=== PATIENT | female | born 1955 | race Caucasian/White ===

== ENCOUNTER → 2024-02-04 13:09 | Outpatient (REF) | payer BC, SELFPAY | LOC: WDC 13:09 | PROVIDERS: ATTENDING PHYSICIAN Obstetrics & Gynecology Gynecology; FAMILY PHYSICIAN Internal Medicine | DX: Z78.0 Asymptomatic menopausal state (principal); Z12.31 Encounter for screening mammogram for malignant neoplasm of breast | CPT/HCPCS: 77063; 77067; 77080 ==

== ENCOUNTER → 2024-03-22 06:20 | Outpatient (REF) | payer BC, SELFPAY ==
[2024-03-22 08:25] LABS: ALT (SGPT) 27 U/L (0-35); AST (SGOT) 35 U/L (14-36); Albumin 4.4 g/dl (3.5-5.0); Alkaline Phosphatase 99 U/L (38-126); Blood Urea Nitrogen 14 mg/dl (7-17); Calcium 9.5 mg/dl (8.4-10.2); Carbon Dioxide 26 mmol/L (22-30); Chloride 104 mmol/L (98-107); Glucose 114 mg/dl (70-99); HDL Cholesterol 72 mg/dl; LDL Cholesterol, Calculated 130 mg/dl; Potassium 4.7 mmol/L (3.5-5.1); Sodium 140 mmol/L (135-145); Total Bilirubin 0.5 mg/dl (0.2-1.3); Total Cholesterol 223 mg/dl (50-199); Total Protein 7.1 g/dl (6.3-8.2); Triglyceride 105 mg/dl (10-149); Very Low Density Lipoprotein 21 mg/dl (0-30); eGFR > 60.00
[2024-03-22 08:50] LABS: TSH 1.83 uIU/ml (0.47-4.68)
[2024-03-22 08:52] LABS: % Basophils 0.6 % (0-2); % Eosinophils 2.3 % (0-6); % Lymphocytes 35.8 % (20.5-51.1); % Monocytes 9.1 % (1.7-9.3); % Neutrophils 52.2 % (42.2-75.2); Absolute Eosinophils 0.1 10^3/uL (0-0.7); Absolute Lymphocytes 1.7 10^3/uL (1.2-3.4); Absolute Monocytes 0.4 10^3/uL (0.1-0.6); Absolute Neutrophils 2.5 10^3/uL (1.4-6.5); Hematocrit 40.9 % (37.0-47.0); Hemoglobin 13.6 g/dL (12.0-16.0); Mean Corp Hgb Conc. 33.3 g/dL (33.0-37.0); Mean Corpuscular Hgb 28.6 pg (27.0-31.0); Mean Corpuscular Volume 85.9 fL (81.0-99.0); Mean Platelet Volume 9.4 fL (7.4-10.4); Nucleated Red Blood Cells % 0 %; Platelet Count 267 10^3/uL (130-400); Red Blood Cell Count 4.76 10^6/uL (4.20-5.40); Red Cell Dist. Width 12.2 % (11.5-14.5); White Blood Cell Count 4.9 10^3/uL (4.8-10.8)
[2024-03-22 08:58] LABS: Glycohemoglobin (HgbA1c) 5.8 % (4.0-5.6)
== END ==
LOC: REG 06:20
PROVIDERS: ATTENDING PHYSICIAN Nurse Practitioner; FAMILY PHYSICIAN Internal Medicine
DX: E78.5 Hyperlipidemia, unspecified (principal); R73.01 Impaired fasting glucose; R53.83 Other fatigue; Z00.00 Encounter for general adult medical examination without abnormal findings
CPT/HCPCS: 36415; 80053; 80061; 83036; 84443; 85025

== ENCOUNTER 2024-05-25 06:31 | Day surgery (SDC) | payer BC, SELFPAY | END 2024-05-25 11:05 | disposition home or self-care (01) | LOC: GI 06:31 | PROVIDERS: ATTENDING PHYSICIAN Internal Medicine Gastroenterology; FAMILY PHYSICIAN Internal Medicine | DX: Z12.11 Encounter for screening for malignant neoplasm of colon (principal); D12.0 Benign neoplasm of cecum; K57.30 Diverticulosis of large intestine without perforation or abscess without bleeding; K62.89 Other specified diseases of anus and rectum; K64.8 Other hemorrhoids; K44.9 Diaphragmatic hernia without obstruction or gangrene; K31.7 Polyp of stomach and duodenum; Z86.0101 Personal history of adenomatous and serrated colon polyps; Z13.810 Encounter for screening for upper gastrointestinal disorder; Z87.19 Personal history of other diseases of the digestive system | CPT/HCPCS: 45385; 43251; 88305 ==

== ENCOUNTER → 2024-06-30 13:05 | Outpatient (REF) | payer BC, SELFPAY | LOC: RAD 13:05 | PROVIDERS: ATTENDING PHYSICIAN Nurse Practitioner; FAMILY PHYSICIAN Internal Medicine | DX: N39.46 Mixed incontinence (principal) | CPT/HCPCS: 76770; 76830; 76856 ==

== ENCOUNTER → 2024-07-01 12:49 | Outpatient (REF) | payer BC, SELFPAY ==
[2024-07-01 15:04] LABS: CA 125 21.5 U/mL (0-35)
[2024-07-01 15:11] LABS: CEA 0.93 ng/ml
== END ==
LOC: REG 12:49
PROVIDERS: ATTENDING PHYSICIAN Nurse Practitioner; FAMILY PHYSICIAN Internal Medicine
DX: N83.8 Other noninflammatory disorders of ovary, fallopian tube and broad ligament (principal)
CPT/HCPCS: 36415; 82378; 86301; 86304

== ENCOUNTER → 2024-07-05 11:56 | Outpatient (REF) | payer BC, SELFPAY ==
[2024-07-05 13:30] LABS: ALT (SGPT) 23 U/L (0-35); AST (SGOT) 30 U/L (14-36); Albumin 4.2 g/dl (3.5-5.0); Alkaline Phosphatase 81 U/L (38-126); Blood Urea Nitrogen 15 mg/dl (7-17); Calcium 9.4 mg/dl (8.4-10.2); Carbon Dioxide 26 mmol/L (22-30); Chloride 102 mmol/L (98-107); Glucose 103 mg/dl (70-99); Potassium 4.2 mmol/L (3.5-5.1); Sodium 137 mmol/L (135-145); Total Bilirubin 0.5 mg/dl (0.2-1.3); Total Protein 7.2 g/dl (6.3-8.2); eGFR > 60.00
== END ==
LOC: REG 11:56
PROVIDERS: ATTENDING PHYSICIAN Nurse Practitioner
DX: Z01.818 Encounter for other preprocedural examination (principal)
CPT/HCPCS: 36415; 80053

== ENCOUNTER → 2024-07-06 13:30 | Outpatient (REF) | payer BC, SELFPAY | LOC: RAD 13:30 | PROVIDERS: ATTENDING PHYSICIAN Nurse Practitioner; FAMILY PHYSICIAN Internal Medicine; OTHER PHYSICIAN Obstetrics & Gynecology Gynecology | DX: N83.8 Other noninflammatory disorders of ovary, fallopian tube and broad ligament (principal) | CPT/HCPCS: 74177; Q9967 ==

== ENCOUNTER → 2024-08-04 15:10 | Outpatient (REF) | payer BC, SELFPAY ==
[2024-08-04 17:54] LABS: Urine Bacteria Few (Negative); Urine Mucus Few; Urine Red Blood Cell 0-2 /HPF (0-2)
== END ==
LOC: REG 15:10
PROVIDERS: ATTENDING PHYSICIAN Obstetrics & Gynecology Gynecologic Oncology; FAMILY PHYSICIAN Internal Medicine
DX: R30.0 Dysuria (principal)
CPT/HCPCS: 81015; 87086

== ENCOUNTER → 2024-12-09 06:27 | Outpatient (REF) | payer BC, SELFPAY ==
[2024-12-09 08:36] LABS: ALT (SGPT) 33 U/L (0-35); AST (SGOT) 32 U/L (14-36); Albumin 4.8 g/dl (3.5-5.0); Alkaline Phosphatase 88 U/L (38-126); Blood Urea Nitrogen 18 mg/dl (7-17); Calcium 10.1 mg/dl (8.4-10.2); Carbon Dioxide 25 mmol/L (22-30); Chloride 103 mmol/L (98-107); Glucose 107 mg/dl (70-99); Potassium 4.9 mmol/L (3.5-5.1); Sodium 137 mmol/L (135-145); Total Protein 8.0 g/dl (6.3-8.2); eGFR > 60.00
== END ==
LOC: REG 06:27
PROVIDERS: FAMILY PHYSICIAN Internal Medicine
DX: D39.12 Neoplasm of uncertain behavior of left ovary (principal)
CPT/HCPCS: 36415; 80053

== ENCOUNTER → 2024-12-27 08:25 | Outpatient (REF) | payer BC, SELFPAY | LOC: RAD 08:25 | PROVIDERS: ATTENDING PHYSICIAN Obstetrics & Gynecology Gynecologic Oncology; FAMILY PHYSICIAN Internal Medicine; REFERRING PHYSICIAN Obstetrics & Gynecology Gynecology | DX: D39.12 Neoplasm of uncertain behavior of left ovary (principal) | CPT/HCPCS: 71270; 74177; Q9967 ==

== ENCOUNTER → 2025-01-26 07:20 | Outpatient (REF) | payer BC, SELFPAY | LOC: RAD 07:20 | PROVIDERS: ATTENDING PHYSICIAN Nurse Practitioner; FAMILY PHYSICIAN Internal Medicine; REFERRING PHYSICIAN Obstetrics & Gynecology Gynecology | DX: D39.12 Neoplasm of uncertain behavior of left ovary (principal); R10.9 Unspecified abdominal pain | CPT/HCPCS: 76700 ==

== ENCOUNTER → 2025-02-07 14:41 | Outpatient (REF) | payer BC, SELFPAY | LOC: WDC 14:41 | PROVIDERS: ATTENDING PHYSICIAN Obstetrics & Gynecology Gynecology; FAMILY PHYSICIAN Internal Medicine | DX: Z12.31 Encounter for screening mammogram for malignant neoplasm of breast (principal) | CPT/HCPCS: 77063; 77067 ==

== ENCOUNTER → 2025-03-27 06:30 | Outpatient (REF) | payer BC, SELFPAY ==
[2025-03-27 07:27] LABS: Hematocrit 40.1 % (37.0-47.0); Hemoglobin 13.2 g/dL (12.0-16.0); Mean Corp Hgb Conc. 32.9 g/dL (33.0-37.0); Mean Corpuscular Volume 88.5 fL (81.0-99.0); Nucleated Red Blood Cells % 0 %; Platelet Count 241 10^3/uL (130-400); Red Cell Dist. Width 12.0 % (11.5-14.5)
[2025-03-27 07:54] LABS: ALT (SGPT) 27 U/L (0-35); AST (SGOT) 36 U/L (14-36); Albumin 4.3 g/dl (3.5-5.0); Alkaline Phosphatase 97 U/L (38-126); Blood Urea Nitrogen 15 mg/dl (7-17); Calcium 9.1 mg/dl (8.4-10.2); Carbon Dioxide 25 mmol/L (22-30); Chloride 103 mmol/L (98-107); Glucose 110 mg/dl (70-99); HDL Cholesterol 64 mg/dl; LDL Cholesterol, Calculated 128 mg/dl; Potassium 4.1 mmol/L (3.5-5.1); Sodium 136 mmol/L (135-145); Total Protein 7.1 g/dl (6.3-8.2); Very Low Density Lipoprotein 26 mg/dl (0-30); eGFR > 60.00
[2025-03-27 08:19] LABS: TSH 1.56 uIU/ml (0.47-4.68)
[2025-03-27 08:48] LABS: Glycohemoglobin (HgbA1c) 5.6 % (4.0-5.9)
== END ==
LOC: REG 06:30
PROVIDERS: ATTENDING PHYSICIAN Internal Medicine; REFERRING PHYSICIAN Obstetrics & Gynecology Gynecology
DX: E78.5 Hyperlipidemia, unspecified (principal); R73.01 Impaired fasting glucose; E04.1 Nontoxic single thyroid nodule; R53.83 Other fatigue
CPT/HCPCS: 36415; 80053; 80061; 83036; 84443; 85025

== ENCOUNTER 2025-04-17 06:28 | Day surgery (SDC) | payer BC, SELFPAY ==
[2025-04-03 13:27] VITALS: BMI 27.3
[2025-04-17] VITALS (7 sets, daily range): BP systolic 94–152; BP diastolic 73–86; BMI 27.3
[2025-04-17] MEDS: TYLENOL 1000 MG PO (11:11)
[2025-04-17] MEDS: NORMOSOL-R/PLASMALYTE-A 1000 IV (11:11)
--- NOTE | 2025-04-17 14:48 | HP.FOC2 ---
Focused History & Physical
Chief Complaint
HPI:
Chief Complaint: Epigastric abdominal pain
HPI / Indication for Planned Procedure: Patient is a 69-year-old female recently seen in outpatient surgical evaluation secondary to recurrent bouts of intermittent epigastric abdominal pain and distention. Symptoms are exacerbated by p.o. intake.
Outpatient evaluation included CT imaging identifying large gallstone and inflammatory changes of the gallbladder. Subsequent ultrasound imaging similarly identified multiple large gallstones with gallbladder wall thickening measuring up to 7 mm.
She presents today for cholecystectomy.
Relevant Past Medical History: Other (Hyperlipidemia, anemia, hemorrhoids, GERD, seasonal allergies)
Relevant Social History: Negative
Relevant Family History: Negative
Relevant Past Surgical History: Positive for (Robotic assisted laparoscopic ARIAN/BSO)
Review of Systems
Review of Pertinent Systems: All Systems Negative
Medication
See Medication form for detailed medications: Yes
Medication List (including Herbals & OTC):
atorvastatin 20 mg tablet 40 mg PO DAILY 10/16/22
lansoprazole 30 mg capsule,delayed release 15 mg PO DAILY 10/16/22
multivitamin 1 tab PO DAILY 10/16/22
calcium 500 mg (as carbonate)-vitamin D3 3.125 mcg (125 unit) tablet 1 tab PO DAILY 04/10/25
guar gum 3 tbsp PO HS 04/10/25
Medications Reviewed: Yes
Allergies and Reactions
Patient has Allergies: Yes
Noted Allergies and Reactions:
Allergy/AdvReac Type Severity Reaction Status Date / Time
seasonal Allergy Unknown Uncoded 04/17/25 10:45
Pertinent Physical Exam
All Other Systems: Negative
Head/Neck: Normal
Lungs: Normal
Heart: Normal
Abdomen: Normal
Extremities: Normal
Neurological: Normal
Diagnosis / Assessment
69-year-old female with symptomatic cholelithiasis/probable chronic calculous cholecystitis presenting for cholecystectomy
Plan / Procedure
Laparoscopic cholecystectomy with intraoperative cholangiogram
Anesthesia/Sedation to be done by Anesthesia Provider: Yes
--- NOTE | 2025-04-17 14:50 | W.SUR.PREOP ---
Pre-Operative Surgical Note
-
I have examined this patient prior to the performance of the scheduled procedure.
The patient's condition is unchanged from the time of the current History and
Physical and the patient is able to undergo the scheduled procedure.
--- NOTE | 2025-04-17 16:38 | W.IMMPOSTOP ---
Addendum entered and electronically signed by Calvin Lowe MD 04/17/25 16:48:
#[id number]
Original Note:
Surgical Immed Post Op Note
-
Primary Surgeon: Calvin Lowe MD
Assisting Surgeon: Alyse BURRELL
Pre-op Diagnosis: Chronic calculous cholecystitis
Post-op Diagnosis: Chronic calculous cholecystitis
Procedure Performed: Laparoscopic cholecystectomy with cholangiogram
Anesthesia Type: GETA +0.25% Marcaine with epinephrine
Specimen / Cultures: Gallbladder/none
Estimated Blood Loss: 6 mL
Complications: None immediate
Operative Findings: Mild gallbladder wall thickening throughout the fundus and body. Gallstones. No adhesions to the gallbladder. Anterior and posterior cystic artery branches individually identified and controlled with clips. Intraoperative
cholangiogram normal. Cystic duct stump controlled with 3 proximal clips. Gallbladder removed off liver bed intact and extracted at epigastric 12 mm trocar site.
== END 2025-04-17 17:51 | disposition home or self-care (01) ==
LOC: SDS 06:28
PROVIDERS: ATTENDING PHYSICIAN Surgery; FAMILY PHYSICIAN Internal Medicine
DX: K80.10 Calculus of gallbladder with chronic cholecystitis without obstruction (principal); K82.8 Other specified diseases of gallbladder
CPT/HCPCS: 47563; 36415; 74300; 76000; 88304; 93005; A4300